=== PATIENT | male | born 1965 | race Caucasian/White ===

== ENCOUNTER 2017-11-29 04:36 | Emergency (ER) | payer OTHER ==
[~2017-11-29] VITALS: Ht 182.9 cm; Wt 83.9 kg
[2017-11-29 09:13] VITALS: BP 0/0
--- NOTE | 2017-11-29 13:11 | EKG ---
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 11/29/17 1311 0449 0449 Mike Shi MD, FACC /EPI
--- NOTE | 2017-11-29 13:12 | EKG ---
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
== END 2017-11-29 05:42 ==
LOC: M.ERS 04:36
DX: I46.9 Cardiac arrest, cause unspecified (principal); T82.111A Breakdown (mechanical) of cardiac pulse generator (battery), initial encounter; I21.9 Acute myocardial infarction, unspecified; I26.99 Other pulmonary embolism without acute cor pulmonale; Y92.89 Other specified places as the place of occurrence of the external cause